=== PATIENT | male | born 1995 | race Hispanic/Latino ===

== ENCOUNTER 2022-06-20 11:08 | Emergency (ER) | payer SELFPAY ==
--- OUTSIDE RECORDS SUMMARY | 2022-06-20 11:11 | XMS REPORT | Continuity of Care Document ---
:1995 Author Organization [facility] t Address [address] [place] [address] Care Team Providers Name Role Phone Foster Wilson Attending Clinician Unavailable Physician, No Primary or Family Admitting Clinician Unavaila ble Payers Payer Name Policy Type Policy Number Effective Date Expiration Date S ource Problems This patient has no known problems. Allergies, Adverse Reactions, Alerts Allergy Allergy Status Severity Reaction(s) Onset Inactive Treating Comm ents Source Name Type Date Date Clinician No Known DA Active U 2017-06 [facility] Allergie 0 Corp[facility] s 00:00: [address] [place] DA Active U 2017-06 [facility] ins 0 Corpus 00:00: [address] [place] DA Active U UNKNOWN 2017-06 [facility] ins 0 Corpus 00:00: [address] Medications This patient has no known medications. Procedures This patient has no known procedures. Encounters Start End Encounter Admission Attending Care Care Encounter Source Date/Time Date/Time Type Type Clinicians Facility Department ID 2020-11-22 2020-11-22 Emergency EM GILBERT Wilson ER [id number] [facility] 07:25:00 07:50:00 Foster [facility] Results Test Description Test Time Test Comments Results Result Comments Source TROPONIN I RAPID 2019-04-07 10:35:00 Test Item Value Reference Range Interpretation Comme nts TROPONIN I RAPID (test code = 0.01 NG/ML 0.00-0.08 N Performed by certified burring machine operator TROPIRAP) [facility] - The use of serial sampl ing and testing protocol is a r ecommended practice.- An e levated troponin level alone is often not sufficient for diagnosis of myocardial infa rction. LACTIC ACID [id number] 10:06:00 Test Item Value Reference Range Interpretation Comments LACTIC ACID POC 0.63 MMOL/L 0.90-1.70 L Performed by certified (test code = LACTP) burring machine operator at [facility] - XR CHEST 2 [id number] 09:31:00 Patient Name: LASHANDA WALKER Unit No: [id number] EXAMS: CPT CODE: [id number] XR CHEST 2 V 22260 Reason: CP FINDINGS: Two views of the chest show normal heart size and pulmonary vasculature. The lungs are clear bilaterally. There is no focal infiltrate, effusion or pneumothorax. IMPRESSION: No acutecardiopulmonary findings at 0931 Reported and signed by: Rodrigo Santoyo MD CC: Sarah Arita DO; Rodrigo Wilson REAR ADMIRAL Technologist: Marly LADD (Schroeder) Trscrpt Dt/ (930)tBON Orig Print D/T: S: 04/07/2019 (0934) [facility] NAME: LASHANDA WALKER [address] PHYS: Sarah Cordova [place] [address] : 1995 AGE: 23 SEX: M LOC: TRICIA PHONE #: [phone] EXAM DATE: 04/07/2019 STATUS: REG ER FAX #: RAD NO: DC Dt: PAGE 1 Signed Report
[2022-06-20 12:14] LABS: Absolute Lymphocytes (CBC) 1.6 K/uL (0.7-4.9); Hematocrit 45.8 % (39.6-49.0); MCV 84.6 fL (80-100); MPV 8.2 fL (7.6-11.3); RBC Red Blood Cell Count 5.42 M/uL (4.33-5.43)
--- NOTE | 2022-06-20 12:16 | RAD REPORT ---
EXAM DESCRIPTION: Jose Single View06/20/2022 11:52 am CLINICAL HISTORY: Chest pain COMPARISON: none FINDINGS: The lungs appear clear of acute infiltrate. The heart is normal size IMPRESSION: No acute abnormalities displayed
[2022-06-20 12:34] LABS: Albumin 4.5 g/dL (3.4-5.0); Bilirubin Direct 0.2 mg/dL (0-0.2); Bilirubin Total 0.6 mg/dL (0.2-1.0); Potassium 3.9 mmol/L (3.5-5.1); Protein, Total 8.2 g/dL (6.4-8.2); Troponin High Sensitivity 3.7 pg/mL (<58.9)
--- NOTE | 2022-06-20 12:55 | RAD REPORT ---
EXAM DESCRIPTION: US - Abdomen Exam Limited - 06/20/2022 12:41 pm CLINICAL HISTORY: ABD PAIN COMPARISON: No comparisons FINDINGS: The gallbladder demonstrates no gallstones. No pericholecystic fluid or gallbladder wall t hickening. The common bile duct is normal measuring 4 mm. Multiple gallbladder polyps identified. The largest measures 4 millimeters. The liver demonstrates no findings of intrahepatic biliary dilatation. IMPRESSION: Negative for cholelithiasis or acute cholecystitis. No biliary duct dilatation. Multiple gallbladder polyps with the largest measuring 4 mm. Recommend 12 month follow-up ultrasound.
--- NOTE | 2022-06-20 14:56 | EDPHYS ---
Physician Documentation [facility] Name: Anatoliy Luna Age: 26 yrs Sex: Male : 1995 Arrival Date: 06/20/2022 Time: 11:09 Bed 26 Private MD: ED Physician Wing Cash HPI: 06/20 14:49 This 26 yrs old Male presents to ER via Ambulatory with complaints of Chest kb Pain, Arm Pain. 14:49 The patient or guardian reports chest pain that is located primarily in the substernal kb area. The pain radiates to the left arm. Associated signs and symptoms: Pertinent positives: abdominal pain, belching. The chest pain is described as aching. Duration: The patient or guardian reports multiple episodes, that wax and wane. Modifying factors: The symptoms are alleviated by nothing. the symptoms are aggravated by nothing. Severity of pain: At its worst the pain was moderate in the emergency department the pain has improved. The patient has not experienced similar symptoms in the past. The patient has not recently seen a physician. Pt reports chest/abd pain that started 2 days ago. Reports he has been belching a lot as well. . Historical: - Allergies: 11:36 Amoxicillin; jl7 - Home Meds: 11:36 None [Active]; jl7 - PMHx: 11:36 None; jl7 - PSHx: 11:36 None; jl7 - Immunization history:: Client reports receiving the 1st dose of the Covid vaccine. - Social history:: Smoking status: Patient denies any tobacco usage or history of. ROS: 14:49 Constitutional: Negative for fever, chills, and weight loss. kb 14:49 Cardiovascular: Positive for chest pain, Negative for edema, orthopnea, palpitations, paroxysmal nocturnal dyspnea. 14:49 Abdomen/GI: Positive for abdominal pain, belching. 14:49 All other systems are negative. Exam: 11:52 Constitutional: This is a well developed, well nourished patient who is awake, alert, kb and in no acute distress. Head/Face: Normocephalic, atraumatic. ENT: Moist Mucous membranes Cardiovascular: Regular rate and rhythm with a normal S1 and S2. No gallops, murmurs, or rubs. No pulse deficits. Respiratory: Respirations even and unlabored. No increased work of breathing. Talking in full sentences Skin: Warm, dry with normal turgor. Normal color. MS/ Extremity: Pulses equal, no cyanosis. Neurovascular intact. Full, normal range of motion. Neuro: Awake and alert, GCS 15, oriented to person, place, time, and situation. Moves all extremities. Normal gait. Psych: Awake, alert, with orientation to person, place and time. Behavior, mood, and affect are within normal limits. 11:52 ECG was reviewed by the Attending Physician. 11:52 Abdomen/GI: Inspection: abdomen appears normal, Bowel sounds: normal, in all quadrants, Palpation: soft, in all quadrants, moderate abdominal tenderness, in the epigastric area. Vital Signs: 11:35 BP 139 / 93; Pulse 103; Resp 15; Temp 98.1; Pulse Ox 100% on R/A; Weight 92.99 kg; jl7 Height 5 ft. 8 in. (172.72 cm); Pain 8/10; 14:21 BP 127 / 87; Pulse 71; Resp 18; Pulse Ox 100% on R/A; em6 15:01 BP 127 / 92; Pulse 71; Resp 18; Pulse Ox 100% on R/A; db 11:35 Body Mass Index 31.17 (92.99 kg, 172.72 cm) jl7 MDM: 11:36 Patient medically screened. kb 13:16 Data reviewed: vital signs, nurses notes. kb 13:16 Differential diagnosis: acute myocardial infarction, cholecystitis, Cholelithiasis kb esophagitis, gastritis, gastroesophageal reflux disease (GERD), pancreatitis. 14:49 Data interpreted: Pulse oximetry: on room air is 100 %. Interpretation: normal. kb 14:53 Counseling: I had a detailed discussion with the patient and/or guardian regarding: the historical points, exam findings, and any diagnostic results supporting the discharge/admit diagnosis, lab results, radiology results, the need for outpatient follow up, a family practitioner, a butter printer, to return to the emergency department if symptoms worsen or persist or if there are any questions or concerns that arise at home. ED course: Reports symptoms improved after treatment. 14:56 ED course: Independent interpretation of the following tests in the emergency kb department:EKG; History obtained from: pt; . 06/20 11:37 Order name: Basic Metabolic Panel; Complete Time: 12:40 kb 06/20 11:37 Order name: CBC with Diff; Complete Time: 12:17 kb 06/20 11:37 Order name: LFT's; Complete Time: 12:40 kb 06/20 11:37 Order name: Troponin HS; Complete Time: 12:40 kb 06/20 11:37 Order name: XRAY Chest (1 view); Complete Time: 12:17 kb 06/20 11:37 Order name: Lipase; Complete Time: 12:40 kb 06/20 11:37 Order name: Cardiac monitoring; Complete Time: 14:15 kb 06/20 11:37 Order name: EKG - Nurse/Tech; Complete Time: 12:00 kb 06/20 11:37 Order name: IV Saline Lock; Complete Time: 12:00 kb 06/20 11:37 Order name: Labs collected and sent; Complete Time: 12:00 kb 06/20 11:37 Order name: US Abdomen Limited; Complete Time: 12:58 kb 06/20 11:37 Order name: O2 Per Protocol; Complete Time: 14:15 kb 06/20 11:37 Order name: O2 Sat Monitoring; Complete Time: 14:16 kb EC:52 Rate is 87 beats/min. Rhythm is regular. QRS [place] is Normal. [place] interval is normal at kb 148 msec. QRS interval is normal at 80 msec. QT interval is normal at 411 msec. Administered Medications: 14:15 Drug: Pepcid (famotidine) 20 mg Route: IVP; Site: right antecubital; em6 14:51 Follow up: Response: No adverse reaction em6 14:15 Drug: GI Cocktail without - (Maalox Suspension 30 ml, Lidocaine Liquid 2 % 15 em6 ml) Route: PO; 14:51 Follow up: Response: No adverse reaction em6 Disposition: 15:19 Co-signature as Attending Physician, Wing Cash MD I agree with the assessment and rt plan of care. Disposition Summary: 06/20/22 14:55 Discharge Ordered Location: Home kb Condition: Stable kb Diagnosis - Gastro-esophageal reflux disease without esophagitis kb Followup: kb - With: Emergency Department - When: As needed - Reason: Worsening of condition Followup: kb - With: Private Physician - When: 2 - 3 days - Reason: Recheck today's complaints, Continuance of care, Re-evaluation by your physician Discharge Instructions: - Discharge Summary Sheet kb - Gastroesophageal Reflux Disease, Adult, [id number] kb Forms: - Medication Reconciliation Form kb - Thank You Letter kb - Antibiotic Education kb - Prescription Opioid Use kb Prescriptions: - Protonix 40 mg Oral Tablet - take 1 tablet by ORAL route once daily; 30 tablet; Refills: 0, Product kb Selection Permitted Signatures: Dispatcher [employer] EDElena Duncan FNP-C FRUCTOSE LOADER-Carol Cash RN RN jl7 Mabel Karimi RN RN em6 Wing Cash MD MD rt Corrections: (The following items were deleted from the chart) 12:01 11:38 HEPATIC FUNCTION+C.LAB.BRZ ordered. EDKS EDKS
--- NOTE | 2022-06-20 14:56 | ER ---
Nurse's Notes [facility] Name: Anatoliy Luna Age: 26 yrs Sex: Male : 1995 Arrival Date: 06/20/2022 Time: 11:09 Bed 26 Private MD: Diagnosis: Gastro-esophageal reflux disease without esophagitis Presentation: 06/20 11:35 Chief complaint: Patient states: Substernal CP x 2 days, epigastric tenderness. jl7 Coronavirus screen: Vaccine status: Patient reports receiving the 1st dose of the Covid vaccine. At this time, the client does not indicate any symptoms associated with coronavirus-19. Ebola Screen: No symptoms or risks identified at this time. Initial Sepsis Screen: Does the patient meet any 2 criteria? No. Patient's initial sepsis screen is negative. Does the patient have a suspected source of infection? No. Patient's initial sepsis screen is negative. Risk Assessment: Do you want to hurt yourself or someone else? Patient reports no desire to harm self or others. Onset of symptoms was June 18, 2021. 11:35 Method Of Arrival: Ambulatory [facility] 11:35 Acuity: MIRIAN 3 jl7 Triage Assessment: 11:36 General: Appears in no apparent distress. uncomfortable, Behavior is calm, cooperative, jl7 appropriate for age. Pain: Complains of pain in mid-sternal area Pain radiates to left arm Pain currently is 8 out of 10 on a pain scale. Cardiovascular: Patient's skin is warm and dry. Historical: - Allergies: 11:36 Amoxicillin; jl7 - Home Meds: 11:36 None [Active]; jl7 - PMHx: 11:36 None; jl7 - PSHx: 11:36 None; jl7 - Immunization history:: Client reports receiving the 1st dose of the Covid vaccine. - Social history:: Smoking status: Patient denies any tobacco usage or history of. Screenin:[facility] ED Fall Risk Assessment (Adult) History of falling in the last 3 months, em6 including since admission No falls in past 3 months (0 pts) Confusion or Disorientation No (0 pts) Intoxicated or Sedated No (0 pts) Impaired Gait No (0 pts) Mobility Assist Device Used No (0 pt) Altered Elimination No (0 pt) Score/Fall Risk Level 0 - 2 = Low Risk Oriented to surroundings, Maintained a safe environment, Educated pt \T\ family on fall prevention, incl call for assistance when getting out of bed, Assessed \T\ reinforced patient's understanding of fall precautions, Provided non-skid footwear, Hourly rounding (assess needs \T\ fall precautionary measures) done, Used ambulatory aids as needed (educated on \T\ assisted with), Used gait belt as appropriate. Abuse screen: Denies threats or abuse. Nutritional screening: No deficits noted. Nutritional screening: No deficits noted. Tuberculosis screening: No symptoms or risk factors identified. Assessment: 14:19 General: Appears in no apparent distress. Behavior is cooperative. Pain: Complains of em6 pain in epigastric area and left arm and chest and mid-sternal area. Pain: Pain radiates to left arm Pain currently is 0 out of 10 on a pain scale. Quality of pain is described as pressure, Pain began 1 day ago. Neuro: Level of Consciousness is awake, alert, obeys commands, Oriented to person, place, time, situation. Cardiovascular: Heart tones present. Respiratory: Airway is patent Respiratory effort is even, unlabored, Respiratory pattern is regular, symmetrical, Breath sounds are clear bilaterally. GI: Abdomen is non-distended, Bowel sounds present X 4 quads. Abd is soft and non tender X 4 quads. : No signs and/or symptoms were reported regarding the genitourinary system. EENT: No signs and/or symptoms were reported regarding the EENT system. Derm: No signs and/or symptoms reported regarding the dermatologic system. Musculoskeletal: Circulation, motion, and sensation intact. Range of motion: intact in all extremities. 15:01 Reassessment: Patient appears in no apparent distress at this time. Patient and/or db family updated on plan of care and expected duration. Pain level reassessed. Patient is alert, oriented x 3, equal unlabored respirations, skin warm/dry/pink. Patient states symptoms have improved. Vital Signs: 11:35 BP 139 / 93; Pulse 103; Resp 15; Temp 98.1; Pulse Ox 100% on R/A; Weight 92.99 kg; jl7 Height 5 ft. 8 in. (172.72 cm); Pain 8/10; 14:21 BP 127 / 87; Pulse 71; Resp 18; Pulse Ox 100% on R/A; em6 15:01 BP 127 / 92; Pulse 71; Resp 18; Pulse Ox 100% on R/A; db 11:35 Body Mass Index 31.17 (92.99 kg, 172.72 cm) jl7 ED Course: 11:09 Patient arrived in ED. mr 11:23 Elena Ross [facility]NP[facility]C [facility] kb 11:23 Wing Cash MD is Attending Physician. kb 11:36 Triage completed. jl7 11:36 Arm band placed on right wrist. jl7 11:54 XRAY Chest (1 view) In Process Unspecified. EDMS 11:59 Inserted saline lock: 20 gauge in right antecubital area, using aseptic technique. vg1 Blood collected. 12:00 Basic Metabolic Panel Sent. vg1 12:00 CBC with Diff Sent. vg1 12:00 Troponin HS Sent. vg1 12:00 Lipase Sent. vg1 12:43 US Abdomen Limited In Process Unspecified. EDMS 13:17 Carol Saucedo, RN is Primary Nurse. jl7 14:05 Jackie Faustin, COLE is Primary Nurse. db 14:20 Bed in low position. Call light in reach. Side rails up X 1. seismograph supervisor on. Pulse em6 ox on. NIBP on. Warm blanket given. 14:20 Patient maintains SpO2 saturation greater than 95% on room air. em6 15:02 No provider procedures requiring assistance completed. IV discontinued, intact, db bleeding controlled, No redness/swelling at site. Administered Medications: 14:15 Drug: Pepcid (famotidine) 20 mg Route: IVP; Site: right antecubital; em6 14:51 Follow up: Response: No adverse reaction em6 14:15 Drug: GI Cocktail without - (Maalox Suspension 30 ml, Lidocaine Liquid 2 % 15 em6 ml) Route: PO; 14:51 Follow up: Response: No adverse reaction em6 Medication: 14:21 VIS not applicable for this client. em6 Outcome: 14:55 Discharge ordered by . kb 15:02 Discharged to home ambulatory. db 15:02 Condition: stable 15:02 Discharge instructions given to patient, Instructed on discharge instructions, follow up and referral plans. Demonstrated understanding of instructions, Prescriptions given X 1. 15:02 Patient left the ED. db Signatures: Dispatcher [employer] EDMS Elena Ross FNP-C BASEBALL PLAYER-Ckb Nahid Katherine mr SaucedoCarol, RN RN jl7 Vicki Husain, RN RN vg1 Mabel Karimi, RN RN em6 Jackie Faustin, RN RN db Corrections: (The following items were deleted from the chart) 12:01 12:00 HEPATIC FUNCTION+C.LAB.BRZ drawn and sent. vg1 KRISTIN
[2022-06-20 15:25] VITALS: TEMP 98.1; O2SAT 100
[2022-06-20 15:27] VITALS: BP 127/92
--- NOTE | 2022-06-21 16:05 | EKG ---
Test Date: 2022-06-20 Test Time: 11:49:46 Veterinarian Helper: QUAN MEASUREMENT RESULTS: Intervals: Rate: 87 HI: 148 QRSD: 80 QT: 342 QTc: 411 [place]: P: 55 HI: 148 QRS: 86 T: 7 INTERPRETIVE STATEMENTS: Normal sinus rhythm Normal ECG No previous ECG available for comparison Electronically Signed On 06-21-22 16:04:00 LABEL PINKER by Ethan Styles
== END 2022-06-20 15:02 | disposition home or self-care (01) ==
LOC: ER 11:08
DX: K21.9 Gastro-esophageal reflux disease without esophagitis (principal)
CPT/HCPCS: 36415; 71045; 76705; 80048; 80076; 83690; 84484; 85025; 93005; 96374; 99285